=== PATIENT | female | born 1980 | race Caucasian/White ===

== ENCOUNTER 2018-01-28 | Emergency (ER) | payer OTHER | END 2018-01-28 09:46 | disposition home or self-care (01) | PROC: 3E0234Z Introduction of Serum, Toxoid and Vaccine into Muscle, Percutaneous Approach (ICD-10-PCS; principal; 2018-01-28) | DX: Z20.3 Contact with and (suspected) exposure to rabies (principal); Z23 Encounter for immunization ==

== ENCOUNTER 2018-02-02 08:16 | Emergency (ER) | payer OTHER ==
[2018-02-02 08:23] VITALS: BP 113/73
[2018-02-02] MEDS ORDERED: RABIES VACC, HUMAN DIPLOID/PF 2.5 UNIT VIAL (RABAVERT) IM ONE (08:24)
--- NOTE | 2018-02-02 08:29 | EDPHY ---
H & P Time Seen by Provider: 02/02/18 08:24 HPI/ROS: CHIEF COMPLAINT: Rabies vaccine HISTORY OF PRESENT ILLNESS: Exposed to a bat at the [facility] presents for 3rd vaccine in the series, 3 weeks technically was yesterday on Tuesday. Tolerated previous vaccine injections without significant side effects. REVIEW OF SYSTEMS: Negative PAST MEDICAL HISTORY: Negative Social history: Here with family General Appearance: Alert and conversant, cooperative. Previous injection site looks normal. Emergency Department course/MDM: 3rd vaccine administered. Knows that 4th and final vaccine of the series should be next week on Tuesday or . Smoking Status: Never smoked Constitutional: Initial Vital Signs Temperature (C) 36.9 C 02/02/18 08:21 Heart Rate 86 02/02/18 08:21 Respiratory Rate 16 02/02/18 08:21 Blood Pressure 113/73 02/02/18 08:21 O2 Sat (%) 99 02/02/18 08:21 O2 Delivery Mode Room Air Allergies/Adverse Reactions: No Known Allergies Allergy (Unverified 02/02/18 08:20) MDM/Departure - MDM Medications Given: Discontinued Medications Rabies Vaccine Human Diploid Cell (Rabavert) 2.5 unit IM .ONCE ONE Stop: 02/02/18 08:25 Last Admin: 02/02/18 08:58 Dose: 2.5 unit - Depart Disposition: Home, Routine, Self-Care Clinical Impression: Need for rabies vaccination Condition: Good Instructions: Rabies Vaccine (ED) Additional Instructions: Next and last vaccine is in 7 days on February 09. Referrals: Mary Nicholas [Primary Care Provider] - As per Instructions
== END 2018-02-02 09:00 | disposition home or self-care (01) ==
PROC: 3E0234Z Introduction of Serum, Toxoid and Vaccine into Muscle, Percutaneous Approach (ICD-10-PCS; principal; 2018-02-02)
DX: Z20.3 Contact with and (suspected) exposure to rabies (principal); Z23 Encounter for immunization

== ENCOUNTER 2018-02-08 15:21 | Emergency (ER) | payer OTHER ==
[2018-02-08 15:35] VITALS: BP 116/67
[2018-02-08] MEDS ORDERED: RABIES VACC, HUMAN DIPLOID/PF 2.5 UNIT VIAL (RABAVERT) IM ONE (15:47)
--- NOTE | 2018-02-08 15:49 | EDPHY ---
ED Progress Note Narrative: The patient presents further final rabies vaccination. They were not evaluated by the emergency room physician for acute complaints.
== END 2018-02-08 16:28 | disposition home or self-care (01) ==
PROC: 3E0234Z Introduction of Serum, Toxoid and Vaccine into Muscle, Percutaneous Approach (ICD-10-PCS; principal; 2018-02-08)
DX: Z20.3 Contact with and (suspected) exposure to rabies (principal); Z23 Encounter for immunization